=== PATIENT | female | born 1945 | race Caucasian/White ===

== ENCOUNTER → 2017-10-03 | Outpatient (CLI) | payer MEDICARE, BC ==
[~2017-10-03] MED LIST: CALCIUM/MAG/ZINC PO; CALCIUM/MAGNESI1 T17 PO; DULCOLAX S10 MG/SUPP RC; EPA FISH OIL1000 MG PO; NATURAL IRON65 MG PO; OMEGA-3 1000 MG1 CAP PO; PROBIOTIC FORMU1 CAP PO; VITAMIN B1250 MCG PO; VITAMIN B6100 MG PO; VITAMIN D31000 IU PO; ZANTAC 150150 MG PO; ZOCOR40 MG PO
== END ==
LOC: COL.RAD 10:31
DX: K80.20 Calculus of gallbladder without cholecystitis without obstruction (principal); K57.30 Diverticulosis of large intestine without perforation or abscess without bleeding; K44.9 Diaphragmatic hernia without obstruction or gangrene
CPT/HCPCS: Q9967

== ENCOUNTER → 2018-11-20 | Outpatient (CLI) | payer MEDICARE, BC | LOC: MC.RAD 08:42 | DX: Z12.31 Encounter for screening mammogram for malignant neoplasm of breast (principal); R92.0 Mammographic microcalcification found on diagnostic imaging of breast ==

== ENCOUNTER 2023-06-13 17:37 | Emergency (ER) | payer MEDICARE, BC ==
[~2023-06-13] VITALS: Ht 157.5 cm; Wt 59.5 kg
[~2023-06-13 17:37] MED LIST changes: +ALLEGRA 180MG180 MG PO; +ALTACE 5MG5 MG PO; +ASPIRIN 81M81 MG/TA2 PO; +DIPROLENE AF GEL15GM TP; +FLAXSEED OIL1000 MG PO; +LIPITOR 40MG TA40 MG PO; +PROTONIX 40MG T40 MG PO; +VITAMIN B COMPL1 SGL PO; +[UNRECOGNIZED DRUG - OTHER] NASAL.CANN
[2023-06-13 17:42] VITALS: TEMP 98.1
[2023-06-13 17:59] LABS: BASO % 0.2 % (0.0-2.0); EOS % 0.2 % (0.0-4.0); GRAN # 1.9 K/mm3 (1.4-6.5); GRAN % 43.5 % (42.2-75.2); HEMOGLOBIN 13.6 g/dl (12.5-16.0); LYMPH # 1.7 K/mm3 (1.2-3.4); LYMPH % 38.9 % (20.0-51.0); MEAN CELL VOLUME 96 fl (80.0-100.0); MEAN CORPUSCULAR HEMOGLOBIN 32 pg (27-31); MEAN CORPUSCULAR HGB CONC 33 g/dl (33.0-37.0); MEAN PLATELET VOLUME 10.3 fl (7.4-10.4); MONO # 0.8 K/mm3 (0.1-0.6); PLATELET COUNT 179 K/mm3 (130-400); RED BLOOD COUNT 4.26 M/mm3 (4.10-5.30); REDCELL DISTRIBUTION WIDTH-CV 13.2 % (11.5-14.5)
[2023-06-13 18:18] LABS: BILIRUBIN,TOTAL 0.5 mg/dL (0.2-1.2); CALCIUM 9.4 mg/dL (8.4-10.2); CREATININE, serum 0.8 mg/dL (0.57-1.11); POTASSIUM 3.7 mmol/L (3.5-4.5); TOTAL PROTEIN 7.4 gm/dL (6.2-8.1)
[2023-06-13 18:23] LABS: TROPONIN-I 0.011 ng/mL (0.00-0.033)
[2023-06-13 20:51] VITALS: BP 157/82; PULSE 74
== END 2023-06-13 20:51 | disposition home or self-care (01) ==
LOC: COL.ER 17:37
PROVIDERS: Family Medicine
DX: I10 Essential (primary) hypertension (principal); Z87.891 Personal history of nicotine dependence

== ENCOUNTER 2023-09-13 08:20 | Day surgery (SDC) | payer MEDICARE, BC ==
[~2023-09-13] VITALS: Ht 157.6 cm; Wt 58.6 kg
[~2023-09-13 08:20] MED LIST changes: +LR 1,000 ML IV SCH
[2023-09-13] MEDS ORDERED: 1/2 NS 1,000 ML IV SCH (08:30)
[2023-09-13] MEDS ORDERED: NS Flush 10 ML SYRINGE PRN ICA (08:30)
[2023-09-13 08:46] VITALS: BP 135/82; PULSE 76; TEMP 97.8
[2023-09-13 08:58] LABS: EOS % 0.8 % (0.0-4.0); GRAN % 39.4 % (42.2-75.2); HEMOGLOBIN 11.8 g/dl (12.5-16.0); LYMPH # 1.1 K/mm3 (1.2-3.4); LYMPH % 42.1 % (20.0-51.0); MEAN CELL VOLUME 92 fl (80.0-100.0); MEAN CORPUSCULAR HEMOGLOBIN 30 pg (27-31); MEAN CORPUSCULAR HGB CONC 32 g/dl (33.0-37.0); MEAN PLATELET VOLUME 10.1 fl (7.4-10.4); MONO # 0.4 K/mm3 (0.1-0.6); MONO % 17.3 % (1.7-9.3); PLATELET COUNT 293 K/mm3 (130-400); RED BLOOD COUNT 3.96 M/mm3 (4.10-5.30); REDCELL DISTRIBUTION WIDTH-CV 15.7 % (11.5-14.5)
[2023-09-13] MEDS ORDERED: NS Flush 10 ML SYRINGE BID ICA SCH (09:00)
[2023-09-13 09:01] LABS: HEMATOCRIT 36.4 % (37.0-47.0)
[2023-09-13 09:23] LABS: CALCIUM 9.8 mg/dL (8.4-10.2); CREATININE, serum 0.76 mg/dL (0.57-1.11)
[2023-09-13] MEDS ORDERED: Lidocaine PF 2% (20 MG/ML) 5 ML VIAL ONE (10:27)
[2023-09-13 11:00] VITALS: BP 145/94; PULSE 78
--- NOTE | 2023-09-13 11:07 | NUR ---
PATIENT AND ALERT AND ORIENTED, DENIES COMPLAINTS. VSS. PATIENT'S FAMILY BROUGHT TO BEDSIDE. TRANSFER OF CARE REPORT GIVEN TO WOLFGANG SERRANO. CALL LIGHT WITHIN REACH, BED IN LOWEST POSITION, X2 BEDRAILS UP.
[2023-09-13 11:15] VITALS: BP 113/95; PULSE 76
[2023-09-13 11:30] VITALS: BP 139/73; PULSE 70
[2023-09-13 11:45] VITALS: BP 126/78; PULSE 65
[2023-09-13] MEDS ORDERED: TOPROL XL 25MG25 MG PO (14:14)
[2023-09-13 14:30] VITALS: BP 141/74; PULSE 68
--- NOTE | 2023-09-13 14:43 | NUR ---
pt tolerated recovery period well. vs remained within normal limits and IV discontinued upon discharge. pt free from acute concerns and complaints and verbalized understanding of discharge instructions. discharge orders were submitted by Dr. Cristina at 1415. pt tolerated po foods and fluids throughout recovery.
== END 2023-09-13 14:45 | disposition home or self-care (01) ==
LOC: COL.CAR 08:20
PROVIDERS: Internal Medicine Cardiovascular Disease
DX: I08.0 Rheumatic disorders of both mitral and aortic valves (principal)
CPT/HCPCS: J2704

== ENCOUNTER 2024-02-29 10:08 | Emergency (ER) | payer MEDICARE, BC ==
[~2024-02-29] VITALS: Ht 157.5 cm; Wt 58.2 kg
[~2024-02-29 10:08] MED LIST changes: +ELIQUIS 5MG PO; -LR 1,000 ML IV SCH; +PACERONE400 MG PO; +TOPROL XL 25MG25 MG PO; +VENOFER IV
[2024-02-29 10:24] VITALS: TEMP 98
[2024-02-29] MEDS ORDERED: NORCO 325 MG-51 TAB PO (11:24)
[2024-02-29 11:34] VITALS: BP 121/89; PULSE 84
== END 2024-02-29 11:40 | disposition home or self-care (01) ==
LOC: COL.ER 10:08
DX: S22.060A Wedge compression fracture of T7-T8 vertebra, initial encounter for closed fracture (principal); I48.91 Unspecified atrial fibrillation; Z79.01 Long term (current) use of anticoagulants; X50.0XXA Overexertion from strenuous movement or load, initial encounter
CPT/HCPCS: J2360

== ENCOUNTER 2024-03-03 10:49 | Emergency (ER) | payer MEDICARE, BC ==
[~2024-03-03] VITALS: Ht 157.5 cm; Wt 59.1 kg
[~2024-03-03 10:49] MED LIST changes: +NORCO 325 MG-51 TAB PO
[2024-03-03 10:55] VITALS: TEMP 98
[2024-03-03] MEDS ORDERED: NORCO 325 MG-51 TAB PO (12:36)
[2024-03-03 13:15] VITALS: BP 147/74; PULSE 66
[2024-03-03] MEDS ORDERED: PERCOCET 325 MG1 TA2 PO (14:23)
== END 2024-03-03 13:27 | disposition home or self-care (01) ==
LOC: COL.ER 10:49
DX: M48.54XA Collapsed vertebra, not elsewhere classified, thoracic region, initial encounter for fracture (principal); Z87.891 Personal history of nicotine dependence
CPT/HCPCS: A9284

== ENCOUNTER → 2024-03-12 | Outpatient (CLI) | payer MEDICARE, BC ==
[~2024-03-12] MED LIST changes: +PERCOCET 325 MG1 TA2 PO
== END ==
LOC: COL.RAD 13:44
DX: M48.54XA Collapsed vertebra, not elsewhere classified, thoracic region, initial encounter for fracture (principal); M51.34 Other intervertebral disc degeneration, thoracic region